=== PATIENT | female | born 1985 | race Caucasian/White ===

== ENCOUNTER 2016-09-10 08:31 | Emergency (ER) | payer OTHER ==
[~2016-09-10] VITALS: Ht 160 cm; Wt 104.6 kg
[~2016-09-10 08:31] MED LIST: BENADRYL50 MG PO; PEPCID20 MG PO; PREDNISONE20 MG PO; PROVENTIL HFA6.7 GM IH; ZITHROMAX Z-PA250 MG PO
[2016-09-10] MEDS ORDERED: ZANTAC150 MG PO (12:18)
[2016-09-10] MEDS ORDERED: BENADRYL50 MG PO (12:18)
[2016-09-10] MEDS ORDERED: PREDNISONE20 MG PO (12:18)
[2016-09-10 13:40] VITALS: BP 138/76
== END 2016-09-10 13:40 | disposition home or self-care (01) ==
LOC: EME 08:31
DX: O9A.211 Injury, poisoning and certain other consequences of external causes complicating pregnancy, first trimester (principal); T78.40XA Allergy, unspecified, initial encounter; X58.XXXA Exposure to other specified factors, initial encounter; L50.9 Urticaria, unspecified; Z3A.11 11 weeks gestation of pregnancy
CPT/HCPCS: 99281; 99284; J1200; J2930; S0028

== ENCOUNTER 2016-09-19 00:10 | Emergency (ER) | payer OTHER ==
[~2016-09-19] VITALS: Ht 160 cm; Wt 104.7 kg
[~2016-09-19 00:10] MED LIST changes: +ZANTAC150 MG PO
[2016-09-19 00:31] VITALS: BP 142/97
== END 2016-09-19 01:45 | disposition left against medical advice (07) ==
LOC: EME 00:10
DX: T78.40XA Allergy, unspecified, initial encounter (principal); Z33.1 Pregnant state, incidental; Z3A.12 12 weeks gestation of pregnancy; Z53.21 Procedure and treatment not carried out due to patient leaving prior to being seen by health care provider

== ENCOUNTER 2016-10-19 00:44 | Emergency (ER) | payer OTHER ==
[~2016-10-19] VITALS: Ht 160 cm; Wt 103.0 kg
[2016-10-19 02:20] LABS: HEMATOCRIT 33.3 % (36.0-46.0); MCH 25.4 PG (29.0-34.0); MCHC 32.1 G/DL (30.0-36.0); MCV 79.1 FL (83-99); RBC DIS.WIDTH-CV 15.3 % (11.8-14.6); RBC DIS.WIDTH-SD 43.7 % (39-53); RED BLOOD COUNT 4.21 M/uL (3.80-5.20); WHITE BLOOD COUNT 7.3 K/uL (4.1-10.2)
[2016-10-19 02:32] LABS: CHLORIDE 108 mEq/L (99-109); POTASSIUM 3.6 mEq/L (3.7-5.4); SODIUM 139 mEq/L (136-147)
[2016-10-19 02:34] LABS: GLUCOSE 81 mg/dL (70-99)
[2016-10-19 02:35] LABS: ANION GAP 8 MEQ/L (2-14)
[2016-10-19 02:36] LABS: TOTAL BILIRUBIN 0.3 mg/dL (0.0-1.0)
[2016-10-19 02:37] LABS: ALKALINE PHOSPHATASE 90 IU/L (3-129)
[2016-10-19 02:38] LABS: GFR ESTIMATE (CALCULATED) > 59 mL/min/
[2016-10-19 02:39] LABS: UREA NITROGEN (BUN) 7 mg/dL (9-23)
[2016-10-19 03:11] LABS: ADD MIUA? YES; BILIRUBIN NEGATIVE; BLOOD NEGATIVE; COLOR STRAW ((YELLOW)); GLUCOSE (STRIP) NEGATIVE; KETONES 5; LEUKOCYTES TRACE; NITRITE NEGATIVE; PROTEIN (STRIP) NEGATIVE; SPECIFIC GRAVITY 1.005 (1.000-1.030); UROBILINOGEN 0.2 MG/DL (0.2-1.0)
[2016-10-19 03:15] LABS: BACTERIA RARE /HPF; EPITHELIAL CELLS RARE /HPF; MUCUS TRACE /LPF; RED BLOOD CELLS 0-5 /HPF (0-5); UCUL ADDED? NO; WHITE BLOOD CELLS 0-5 /HPF (0-5)
[2016-10-19 03:30] LABS: MEAN PLAT.VOLUME 11.4 uM^3 (9.5-12.4); PLATELET COUNT 188 K/uL (156-360)
[2016-10-19] MEDS ORDERED: MEDROL DOSEPAK4 MG PO (03:36)
[2016-10-19 03:46] VITALS: BP 122/77
== END 2016-10-19 03:47 | disposition home or self-care (01) ==
LOC: EME 00:44 → EXP 00:44
PROVIDERS: Physician Assistant
DX: O26.892 Other specified pregnancy related conditions, second trimester (principal); T78.40XA Allergy, unspecified, initial encounter; R22.0 Localized swelling, mass and lump, head; L53.9 Erythematous condition, unspecified
CPT/HCPCS: 80053; 81003; 85027; 99281; 99283; J1200; J2930; J7030

== ENCOUNTER 2016-10-26 07:48 | Emergency (ER) | payer OTHER ==
[~2016-10-26] VITALS: Ht 160 cm; Wt 100.4 kg
[~2016-10-26 07:48] MED LIST changes: +MEDROL DOSEPAK4 MG PO
[2016-10-26] MEDS ORDERED: PRENATAL TABLE1 EAC3 PO (08:09)
[2016-10-26] MEDS ORDERED: ZYRTEC10 M2 PO (08:09)
[2016-10-26 09:04] LABS: INFLUENZA A VIRAL ANTIGEN NEGATIVE; INFLUENZA B VIRAL ANTIGEN NEGATIVE
[2016-10-26] MEDS ORDERED: ZITHROMAX Z-PA250 MG PO (09:10)
[2016-10-26] MEDS ORDERED: VENTOLIN HFA18 GM IH (09:10)
[2016-10-26 09:16] VITALS: BP 107/72
== END 2016-10-26 09:17 | disposition home or self-care (01) ==
LOC: EME 07:48
PROVIDERS: Emergency Medicine
DX: O99.512 Diseases of the respiratory system complicating pregnancy, second trimester (principal); J20.9 Acute bronchitis, unspecified; Z3A.18 18 weeks gestation of pregnancy; Q60.0 Renal agenesis, unilateral
CPT/HCPCS: 87502; 99281; 99284